=== PATIENT | male | born 1990 | race Caucasian/White ===

== ENCOUNTER 2019-06-13 17:48 | Emergency (ER) | payer SELFPAY ==
[~2019-06-13] VITALS: Ht 185.4 cm; Wt 118.6 kg
[~2019-06-13 17:48] MED LIST: ULTRAM50 M1 PO; ULTRAM50 MG PO; ZITHROMAX Z PA250 MG PO; ZYRTEC10 M3 PO
[2019-06-13] MEDS ORDERED: CYCLOBENZ5 MG PO (18:19)
[2019-06-13] MEDS ORDERED: PREDNISONE20 M1 PO (18:41)
[2019-06-13 18:48] VITALS: BP 146/87
== END 2019-06-13 18:45 | disposition home or self-care (01) ==
LOC: ED 17:48
DX: M54.5 Low back pain (principal); I10 Essential (primary) hypertension; Z98.890 Other specified postprocedural states; W00.0XXA Fall on same level due to ice and snow, initial encounter
CPT/HCPCS: J1170; J2360

== ENCOUNTER 2019-06-14 14:13 | Emergency (ER) | payer SELFPAY ==
[~2019-06-14 14:13] MED LIST changes: +CYCLOBENZ5 MG PO; +PREDNISONE20 M1 PO
[2019-06-14 18:06] VITALS: BP 158/98
== END 2019-06-14 19:00 | disposition home or self-care (01) ==
LOC: ED 14:13
DX: S39.012A Strain of muscle, fascia and tendon of lower back, initial encounter (principal); M54.41 Lumbago with sciatica, right side; Z98.890 Other specified postprocedural states
CPT/HCPCS: J1100; J1885; J2360

== ENCOUNTER → 2019-06-20 | Outpatient (CLI) | payer BC, OTHER ==
[2019-06-14 18:06] VITALS: BP 158/98
== END ==
LOC: RAD 15:17
DX: M25.561 Pain in right knee (principal); M79.661 Pain in right lower leg

== ENCOUNTER → 2019-06-23 | Outpatient (CLI) | payer BC ==
[2019-06-14 18:06] VITALS: BP 158/98
== END | disposition home or self-care (01) ==
LOC: RAD 09:15
DX: M48.061 Spinal stenosis, lumbar region without neurogenic claudication (principal); M51.16 Intervertebral disc disorders with radiculopathy, lumbar region

== ENCOUNTER → 2020-07-23 | Outpatient (CLI) | payer SELFPAY ==
[2020-07-23 15:19] LABS: EOS # 0.1 (0.04-0.40); EOS % 1.2 % (0.0-4.0); HEMATOCRIT 46.9 % (42.0-52.0); HEMOGLOBIN 15.4 g/dL (13.5-18.0); LYMPH# 2.2 (1.50-4.00); MEAN CELL VOLUME 89 fl (78-100); MEAN CORPUSCULAR HEMOGLOBIN 29 pg (27-31); MEAN CORPUSCULAR HGB CONC 33 g/dL (33-37); MEAN PLATELET VOLUME 9.8 fl (7.4-10.4); MONO # 0.8 (0.20-0.80); PLATELET COUNT 290 K/mm3 (130-400); RED BLOOD COUNT 5.27 M/mm3 (4.20-5.60); RED CELL DISTRIBUTION WIDTH 13.4 % (11.5-14.5); WHITE BLOOD COUNT 9.1 K/mm3 (4.8-10.8)
[2020-07-23 15:29] LABS: ALBUMIN 4.5 g/dL (3.5-5.0); POTASSIUM 4.2 mmol/L (3.5-5.1)
[2020-07-23 15:31] LABS: CALCIUM 9.5 mg/dL (8.3-10.5)
[2020-07-23 15:32] LABS: TOTAL PROTEIN 7.6 g/dL (6.4-8.3)
[2020-07-23 15:34] LABS: TOTAL BILIRUBIN 0.6 mg/dL (0.2-1.2)
[2020-07-23 16:22] LABS: ERYTHROCYTE SEDIMENTATION RATE 4 mm/hr (0-15)
== END ==
LOC: LAB 14:58
PROVIDERS: Nurse Practitioner
DX: L03.113 Cellulitis of right upper limb (principal)

== ENCOUNTER → 2022-03-07 | Outpatient (CLI) | payer SELFPAY | LOC: LAB 16:00 | PROVIDERS: Family Medicine | DX: I10 Essential (primary) hypertension (principal) ==

== ENCOUNTER → 2022-07-04 | Outpatient (CLI) | payer SELFPAY ==
[2022-07-04 12:38] LABS: ALBUMIN 4.3 g/dL (3.5-5.0)
[2022-07-04 12:39] LABS: CALCIUM 9.6 mg/dL (8.3-10.5)
[2022-07-04 12:40] LABS: TOTAL PROTEIN 7.6 g/dL (6.4-8.3)
[2022-07-04 12:42] LABS: TOTAL BILIRUBIN 0.3 mg/dL (0.2-1.2)
[2022-07-04 14:44] LABS: POTASSIUM 4.2 mmol/L (3.5-5.1)
== END | disposition home or self-care (01) ==
LOC: LAB 12:17
PROVIDERS: Nurse Practitioner
DX: M10.9 Gout, unspecified (principal)